=== PATIENT | male | born 1965 | race Caucasian/White ===

== ENCOUNTER 2019-07-24 13:24 | Outpatient (CLI) | payer BC, SELFPAY ==
--- NOTE | 2019-07-24 14:00 | ECHO_ITS ---
Patient Info Name: Kenyon Fiore Age: 54 years : 1965 Gender: Male Ht: 73 in Wt: 403 lbs BSA: 3.17 m2 HR: 65 bpm BP: 149 / 108 mmHg Technical Quality: Poor Exam Date: 07/24/2019 2:13 PM Exam Location: [facility] Patient Status: Outpatient Admit Date: 07/24/2019 Staff Ordering Physician: Bentley Brantley DO Facility Administrator: Nusrat San RDCS Attending Provider: eBntley Brantley DO Referring Physician: Fercho KNOTT; Exam Type: CA echo dop color flow w con Study Info Indications I48.91 - UNSPECIFIED ATRIAL FIBRRILLATION Complete two-dimensional, color flow and Doppler transthoracic echocardiogram is performed with contrast to opacify the left ventricle and to improve the deliniation of the left ventricle endocardial borders. Contrast/Agitated Saline Amount: 2.00 ml New IV Access: Antecubital Space and Right Site Condition: No extravasation and IV removed Reason for Poor Study: patient body habitus Summary 1. Left ventricular chamber dimension is moderately enlarged. 2. Definity contrast administered improved wall motion interpretation. 3. Left ventricular systolic function is moderately reduced, estimated at 40-45%. 4. There is mildly increased left ventricular wall thickness. 5. Left ventricular septal wall motion is abnormal with septal motion related to bundle branch block. 6. The left ventricular diastolic function is normal. 7. E/e' 6 is not elevated. 8. Patient is in atrial fibrillation. 9. Left atrial chamber dimension is severely enlarged. 10. Right atrial chamber dimension is mildly enlarged. 11. There is trace aortic valve regurgitation. 12. There is mild mitral valve regurgitation. 13. There is trace tricuspid valve regurgitation. 14. Mild pulmonary hypertension, estimated pulmonary arterial systolic pressure is 41 mmHg. Left Ventricle E/e' 6 is not elevated. Patient is in atrial fibrillation. Definity contrast administered improved wall motion interpretation. Left ventricular chamber dimension is moderately enlarged. Left ventricular systolic function is moderately reduced, estimated at 40-45%. There is mildly increased left ventricular wall thickness. Left ventricular septal wall motion is abnormal with septal motion related to bundle branch block. The left ventricular diastolic function is normal. Right Ventricle Right ventricular chamber dimension is not well visualized. Left Atria Left atrial chamber dimension is severely enlarged. Right Atria Right atrial chamber dimension is mildly enlarged. Aortic Valve The aortic valve is trileaflet. There is no aortic valve stenosis. There is trace aortic valve regurgitation. Pulmonic Valve There is no pulmonic regurgitation. Mitral Valve There is no mitral valve stenosis. There is mild mitral valve regurgitation. Tricuspid Valve There is trace tricuspid valve regurgitation. Mild pulmonary hypertension, estimated pulmonary arterial systolic pressure is 41 mmHg. Pericardium/Pleural There is no pericardial effusion. Aorta The aortic root size at the sinus of Valsalva is normal. Left Ventricular Outflow Tract Name Value Normal LVOT 2D LVOT Diameter
== END 2019-07-24 13:25 | disposition home or self-care (01) ==
PROVIDERS: PCP Family Medicine; Visit Provider Internal Medicine Cardiovascular Disease
DX: I48.91 Unspecified atrial fibrillation (principal); I27.20 Pulmonary hypertension, unspecified; I51.7 Cardiomegaly; R93.1 Abnormal findings on diagnostic imaging of heart and coronary circulation
CPT/HCPCS: C8929

== ENCOUNTER 2019-08-18 07:34 | Outpatient (CLI) | payer BC, SELFPAY ==
--- NOTE | ~2019-08-18 | NM_ITS ---
EXAMINATION: NM juan stress w perfusion DATE: 08/18/2019 10:27 INDICATION: Dyspnea. Atrial fibrillation. TECHNIQUE: Rest images were obtained following intravenous administration of 10.2 mCi Tc99m tetrofosm in (Myoview). The patient was infused intravenously with Lexiscan (Regadenoson). Then, 32.5 mCi Tc99m tetrofosmin (Myoview) was administered intravenously, and stress images were obtained. Data was donta nstructed into short axis and horizontal and vertical long axis SPECT images. Gated SPECT images were also obtained. COMPARISON: None. FINDINGS: There is no definite reversible or fixed perfusion abnormality to suggest ischemia or infar ction. There is normal left ventricular chamber size with global hypokinesis. Left ventricular ejec tion fraction measures 37%. IMPRESSION: 1. Normal myocardial perfusion at rest and during stress. 2. Normal left ventricular size with global hypokinesis resulting in decreased left ventricular eject ion fraction measuring 37%. Reviewed, dictated and finalized at location A. IMPRESSION: 1. Normal myocardial perfusion at rest and during stress. 2. Normal left ventricular size with global hypokinesis resulting in decreased left ventricular ejection fraction measuring 37%.
--- NOTE | 2019-08-18 08:59 | EST_ITS ---
Patient Info Name: Kenyon Fiore Age: 54 years : 1965 Gender: Male Ht: 73 in Wt: 410 lbs BSA: 3.20 m2 Exam Date: 08/18/2019 9:09 AM Exam Location: [facility] Stress Patient Status: Outpatient Admit Date: 08/18/2019 Staff Ordering Physician: Bentley Brantley DO Attending Provider: Bentley Brantley DO Exercise Technologist: Nusrat San RDCS Exercise Physician: Bentley Brantley DO Exam Type: CA stress juan w NM Study Info Indications i48.91 - unspecified atrial fibrillation I51.9 - Heart disease, unspecified R06.00 - Dyspnea, unspecified A regadenoson stress test was performed. Summary 1. 1. Negative lexiscan stress test for ischemic ST changes by ECG criteria. 2. 2. Stable hemodynamics throughout the test. 3. 3. Nuclear scan to follow and will be reported separately. Please correlate with it. 4. 4. Patient informed of the above results. Protocol: Lexiscan Stress ECG Details Stage: REST Duration (min): 8 min : 48 sec HR (bpm): 95 SBP (mmHg): 132 DBP (mmHg): 97 Stage: REST Duration (min): 10 min : 29 sec HR (bpm): 91 SBP (mmHg): 132 DBP (mmHg): 97 Stage: STAGE 1 Duration (min): 1 min : 0 sec HR (bpm): 105 SBP (mmHg): 132 DBP (mmHg): 97 Stage: RECOVERY Duration (min): 1 min : 0 sec HR (bpm): 118 SBP (mmHg): 151 DBP (mmHg): 84 Stage: RECOVERY Duration (min): 2 min : 0 sec HR (bpm): 97 SBP (mmHg): 151 DBP (mmHg): 84 Stage: RECOVERY Duration (min): 3 min : 0 sec HR (bpm): 100 SBP (mmHg): 151 DBP (mmHg): 84 Stage: RECOVERY Duration (min): 4 min : 0 sec HR (bpm): 101 SBP (mmHg): 151 DBP (mmHg): 84 Stage: RECOVERY Duration (min): 4 min : 12 sec HR (bpm): 104 SBP (mmHg): 151 DBP (mmHg): 84 Rest HR: 91 bpm Peak HR: 126 bpm Rest Sys BP: 132 mmHg Peak Sys BP: 151 mmHg Max Pred HR: 164 bpm % Max Pred HR: 77 % Target HR: 139 bpm Max RPP: 19,026 bpm*mmHg Termination Reason: Completed protocol Cardiac Symptoms: Shortness of breath, Nausea Total Time: 1 min : 0 sec Rest Pa BP: 97 mmHg Peak Pa BP: 84 mmHg Total Dose: 0.4 mg Resting ECG Atrial fibrillation. Stress ECG No ST changes. Arrhythmias None other than baseline atrial fibrillation. Report Signatures
== END 2019-08-18 07:35 | disposition home or self-care (01) ==
PROVIDERS: PCP Family Medicine; Visit Provider Internal Medicine Cardiovascular Disease
DX: I48.91 Unspecified atrial fibrillation (principal); I51.9 Heart disease, unspecified; R06.00 Dyspnea, unspecified
CPT/HCPCS: 78452; 93017; A9502; J2785

== ENCOUNTER 2021-08-22 07:35 | Outpatient (CLI) | payer BC, SELFPAY ==
--- NOTE | 2021-08-22 07:56 | ECHO_ITS ---
Patient Info Name: Kenyon Fiore Age: 56 years : 1965 Gender: Male Ht: 73 in Wt: 436 lbs BSA: 3.30 m2 HR: 72 bpm BP: 172 / 120 mmHg Heart Rhythm: Atrial Fibrillation Technical Quality: Poor Exam Date: 08/22/2021 8:12 AM Exam Location: [facility] Patient Status: Outpatient Admit Date: 08/22/2021 Staff Ordering Physician: Bentley Brantley DO Membership Solicitor: Nusrat San RDCS Attending Provider: Bentley Brantley DO Referring Physician: Fercho KNOTT; Exam Type: CA echo dop color flow w con Study Info Indications I51.9 - Heart disease, unspecified Complete two-dimensional, color flow and Doppler transthoracic echocardiogram is performed with contrast to opacify the left ventricle and to improve the deliniation of the left ventricle endocardial borders. Contrast/Agitated Saline Contrast/Ag. Saline: Definity Amount: 4.00 ml Administered By: Nusrat San RDCS New IV Access: Antecubital Space and Right Site Condition: IV removed Reason for Poor Study: patient body habitus Summary 1. Technically suboptimal study due to poor sonographic images. 2. Left ventricular chamber dimension is mildly enlarged. 3. Left ventricular systolic function is preserved, estimated at 50-55%. 4. There is moderately increased left ventricular wall thickness. 5. The left ventricular diastolic function is normal. 6. E/e' 6 is not elevated. 7. Atrial fibrillation. 8. Left atrial chamber dimension is moderately enlarged. 9. Right atrial chamber dimension is mildly enlarged. 10. There is trace aortic valve regurgitation. 11. There is mild mitral valve regurgitation. 12. There is trace tricuspid valve regurgitation. 13. No pulmonary hypertension, estimated pulmonary arterial systolic pressure is 28 mmHg. Left Ventricle Technically suboptimal study due to poor sonographic images. E/e' 6 is not elevated. Atrial fibrillation. Left ventricular chamber dimension is mildly enlarged. Left ventricular systolic function is preserved, estimated at 50-55%. There is moderately increased left ventricular wall thickness. The left ventricular diastolic function is normal. Right Ventricle Right ventricular systolic function is normal based on normal TAPSE 1.8 cm. Right ventricular chamber dimension is not well visualized. Left Atria Left atrial chamber dimension is moderately enlarged. Right Atria Right atrial chamber dimension is mildly enlarged. Aortic Valve The aortic valve is trileaflet. There is no aortic valve stenosis. There is trace aortic valve regurgitation. Pulmonic Valve The pulmonic valve is not well visualized. Mitral Valve There is no mitral valve stenosis. There is mild mitral valve regurgitation. Tricuspid Valve There is trace tricuspid valve regurgitation. No pulmonary hypertension, estimated pulmonary arterial systolic pressure is 28 mmHg. Pericardium/Pleural There is no pericardial effusion. Inferior Vena Cava Inferior vena cava is not well visualized. Aorta The aortic root size at the sinus of Valsalva is not well visualized. Left Ventricular Outflow Tract Name Value Normal LVOT 2D LVOT Diameter 2.10 cm
[2021-08-22] MEDS: PERFLUTREN LIPID MICROSPHERES 1.5 ML VIAL DILUTED TO 10 ML TOTAL VOLUME IV PUSH (09:20)
== END 2021-08-22 07:36 | disposition home or self-care (01) ==
PROVIDERS: PCP Family Medicine; Visit Provider Internal Medicine Cardiovascular Disease
DX: I51.9 Heart disease, unspecified (principal); I51.7 Cardiomegaly
CPT/HCPCS: C8929; Q9957

== ENCOUNTER 2023-11-15 07:55 | Outpatient (CLI) | payer BC, SELFPAY ==
--- NOTE | ~2023-11-15 | NM_ITS ---
EXAMINATION: NM juan stress w perfusion DATE: 11/15/2023 11:19 INDICATION: Dyspnea TECHNIQUE: Rest images were obtained following intravenous administration of 11.88 mCi Tc99m tetrofos min (Myoview). The patient was infused intravenously with Lexiscan (Regadenoson). Then, 31.054 mCi Tc 99m tetrofosmin (Myoview) was administered intravenously, and stress images were obtained. Data was r econstructed into short axis and horizontal and vertical long axis SPECT images. Gated SPECT images w ere also obtained. COMPARISON: None. FINDINGS: There is no definite reversible or fixed perfusion abnormality to suggest ischemia or infar ction. There is normal left ventricular chamber size, wall motion and ejection fraction. Left ventr icular ejection fraction measures 59%. IMPRESSION: 1. Normal myocardial perfusion at rest and during stress. 2. Left ventricular ejection fraction measuring 59%. Reviewed, dictated and finalized at location A.
--- NOTE | 2023-11-15 07:54 | EST_ITS ---
Patient Info Name: Kenyon Fiore Age: 58 years : 1965 Gender: Male Ht: 73 in Wt: 400 lbs BSA: 3.15 m2 HR: 68 bpm BP: 137 / 101 mmHg Heart Rhythm: Sinus Rhythm Exam Date: 11/15/2023 10:31 AM Exam Location: [facility] Patient Status: Outpatient Admit Date: 11/15/2023 Staff Ordering Physician: Bentley Brantley DO Attending Provider: Bentley Brantley DO Exercise Technologist: Esther Alfredo CT Exercise Physician: Bentley Brantley DO Exam Type: CA stress juan w NM Study Info Indications R06.09 - Other forms of dyspnea A regadenoson stress test was performed. Summary 1. 1. Negative lexiscan stress test for ischemic ST changes by ECG criteria. 2. 2. Stable hemodynamics throughout the test. 3. 3. Nuclear scan to follow and will be reported separately. Please correlate with it. 4. 4. Patient informed of the above results. Protocol: Lexiscan Stress ECG Details Stage: REST Duration (min): 1 min : 29 sec HR (bpm): 70 SBP (mmHg): 137 DBP (mmHg): 101 Stage: REST Duration (min): 7 min : 35 sec HR (bpm): 72 SBP (mmHg): 137 DBP (mmHg): 101 Stage: STAGE 1 Duration (min): 1 min : 0 sec HR (bpm): 108 SBP (mmHg): 137 DBP (mmHg): 101 Stage: RECOVERY Duration (min): 1 min : 0 sec HR (bpm): 97 SBP (mmHg): 114 DBP (mmHg): 87 Stage: RECOVERY Duration (min): 2 min : 0 sec HR (bpm): 89 SBP (mmHg): 114 DBP (mmHg): 87 Stage: RECOVERY Duration (min): 3 min : 0 sec HR (bpm): 77 SBP (mmHg): 124 DBP (mmHg): 90 Stage: RECOVERY Duration (min): 3 min : 6 sec HR (bpm): 80 SBP (mmHg): 124 DBP (mmHg): 90 Rest HR: 72 bpm Peak HR: 111 bpm Rest Sys BP: 137 mmHg Peak Sys BP: 124 mmHg Max Pred HR: 160 bpm % Max Pred HR: 69 % Target HR: 136 bpm Max RPP: 13,764 bpm*mmHg Termination Reason: Completed protocol Cardiac Symptoms: Shortness of breath Total Time: 1 min : 0 sec Rest Pa BP: 101 mmHg Peak Pa BP: 90 mmHg Total Dose: 0.4 mg Resting ECG Atrial fibrillation. Stress ECG No ST changes. Arrhythmias None. Report Signatures
--- NOTE | 2023-11-15 07:55 | ECHO_ITS ---
Patient Info Name: Kenyon Fiore Age: 58 years : 1965 Gender: Male Ht: 73 in Wt: 400 lbs BSA: 3.15 m2 HR: 74 bpm BP: 143 / 114 mmHg Heart Rhythm: Atrial Fibrillation Technical Quality: Poor Exam Date: 11/15/2023 9:24 AM Exam Location: Echo Lab Patient Status: Outpatient Admit Date: 11/15/2023 Staff Ordering Physician: Bentley Brantley DO Medicare Sales Representative: Nusrat San RDCS Attending Provider: Bentley Brantley DO Referring Physician: Fercho KNOTT; Exam Type: CA echo dop color flow w con Study Info Indications R06.00 - Dyspnea, unspecified Complete two-dimensional, color flow and Doppler transthoracic echocardiogram is performed with contrast to opacify the left ventricle and to improve the deliniation of the left ventricle endocardial borders. Contrast/Agitated Saline Contrast/Ag. Saline: Definity Amount: 6.00 ml Administered By: Nusrat San RDCS New IV Access: Antecubital Space Reason for Poor Study: patient body habitus Summary 1. Definity contrast administered improved wall motion interpretation. 2. Left ventricular chamber dimension is normal. 3. Left ventricular systolic function is normal, estimated at 55-60%. 4. There is mild concentric increased left ventricular wall thickness. 5. The left ventricular diastolic function is normal. 6. E/e' 6 is not elevated. 7. Atrial fibrillation. 8. Left atrial chamber dimension is moderately enlarged. 9. No pulmonary hypertension, estimated pulmonary arterial systolic pressure is 29 mmHg. 10. There is trace pulmonic regurgitation. Left Ventricle E/e' 6 is not elevated. Atrial fibrillation. Definity contrast administered improved wall motion interpretation. Left ventricular chamber dimension is normal. Left ventricular systolic function is normal, estimated at 55-60%. There is mild concentric increased left ventricular wall thickness. The left ventricular diastolic function is normal. Right Ventricle Right ventricular chamber dimension is normal. Right ventricular systolic function is normal. Left Atria Left atrial chamber dimension is moderately enlarged. Right Atria Right atrial chamber dimension is normal. Aortic Valve The aortic valve is trileaflet. There is no aortic valve stenosis. There is no aortic valve regurgitation. Pulmonic Valve There is trace pulmonic regurgitation. Mitral Valve There is no mitral valve stenosis. There is no mitral valve regurgitation. Tricuspid Valve There is no tricuspid valve regurgitation. No pulmonary hypertension, estimated pulmonary arterial systolic pressure is 29 mmHg. Pericardium/Pleural There is no pericardial effusion. Inferior Vena Cava Normal inferior vena cava with >50% collapse upon inspiration consistent with normal right atrial pressure, 5 mmHg. Aorta The aortic root size at the sinus of Valsalva is normal. Left Ventricular Outflow Tract Name Value Normal LVOT 2D LVOT Diameter 2.12 cm LVOT Doppler LVOT Peak Gradient 3 mmHg LVOT Mean Gradient 2 mmHg LVOT VTI 17.41 cm LVOT VTI/AV VTI Ratio 0.97 LVOT
[2023-11-15] MEDS: PERFLUTREN LIPID MICROSPHERES 1.5 ML VIAL DILUTED TO 10 ML TOTAL VOLUME IV PUSH (10:00)
--- NOTE | 2023-11-15 11:06 | IVDEFINITY ---
Prior to administration of IV Definity the patient was educated on the risks and benefits of the imaging enhancing agent including potential adverse side effects. The patient verbalized understanding. Allergies were verified. No exclusion criteria were identified and at least one of the following inclusion criteria were met: 1) physician request, 2) patient technically difficult to image (per the [place] [employer] guidelines of two or more segments not discernable within the apical view), or 3) questionable left ventricular function. ?
== END 2023-11-15 07:56 | disposition home or self-care (01) ==
PROVIDERS: PCP Student in an Organized Health Care Education/Training Program; Visit Provider Internal Medicine Cardiovascular Disease
DX: R06.00 Dyspnea, unspecified (principal)
CPT/HCPCS: 78452; 93017; A9502; C8929; J2785; Q9957